=== PATIENT | female | born 1990 | race Caucasian/White ===

== ENCOUNTER 2017-03-22 08:47 | Outpatient (CLI) | payer OTHER | END 2017-03-22 08:48 | disposition home or self-care (01) | LOC: LAB 08:47 | PROVIDERS: ATTEND Obstetrics & Gynecology | DX: Z36 Encounter for antenatal screening of mother (principal) | CPT/HCPCS: 36415; 82950; 85018; 86850 ==

== ENCOUNTER 2017-03-23 13:13 | Outpatient (CLI) | payer OTHER | END 2017-03-23 13:14 | disposition home or self-care (01) | LOC: LAB 13:13 | PROVIDERS: ATTEND Internal Medicine | DX: Z53.9 Procedure and treatment not carried out, unspecified reason (principal) ==

== ENCOUNTER 2017-03-24 07:55 | Outpatient (CLI) | payer OTHER ==
[2017-03-24 08:37] LABS: GTT GLUCOSE,FASTING 81 mg/dL (70-100)
== END 2017-03-24 07:56 | disposition home or self-care (01) ==
LOC: LAB 07:55
PROVIDERS: ATTEND Obstetrics & Gynecology
DX: Z36 Encounter for antenatal screening of mother (principal)
CPT/HCPCS: 36415; 82951

== ENCOUNTER 2017-04-27 09:25 | Outpatient (CLI) | payer OTHER ==
[2017-04-27 10:58] LABS: THYROID STIMULATING HORMONE 1.21 uIU/mL (0.34-5.60)
== END 2017-04-27 09:26 | disposition home or self-care (01) ==
LOC: LAB 09:25
PROVIDERS: ATTEND Obstetrics & Gynecology
DX: D34 Benign neoplasm of thyroid gland (principal)
CPT/HCPCS: 36415; 84439; 84443; 84481

== ENCOUNTER 2017-05-06 10:59 | Outpatient (CLI) | payer OTHER ==
--- NOTE | 2017-05-06 11:47 | Ultrasound Report ---
EXAM: THYROID ULTRASOUND EXAM DATE: 05/06/2017 11:30 AM. CLINICAL HISTORY: BENIGN NEOPLASM OF THYROID GLAND. COMPARISON: None. TECHNIQUE: Real time sonographic imaging of the thyroid was performed by the nurse aide evaluator. Multiple re presentative static images were saved for review. FINDINGS: THYROID GLAND: Right Lobe: 4.2 x 1.7 x 1.4 cm, volume 5.1 cc. Normal background echotexture. Right Lobe Nodules: None. Left Lobe: 4.8 x 1.8 x 2.0 cm, volume 9 cc. Normal background echotexture. Left Lobe Nodules: There is a mixed cystic and solid nodule in the midportion of left lobe measuring 2.3 x 1.5 x 1.5 cm with no internal microcalcifications. Isthmus: 0.4 cm AP. Isthmic Nodules: None. LYMPH NODES: No adenopathy demonstrated in the central or lateral compartment. OTHER: None. IMPRESSION: There is a mixed cystic and solid nodule in the midportion of the left lobe measuring up to 2.3 cm which meets imaging criteria for biopsy recommendation. Management recommendations are based on 2015 [place] [employer] Management Guidelines for A dult Patients with Thyroid Nodules and Differentiated Thyroid Cancer. [facility] Referring Provider Line: [phone] SITE ID: [id number]
== END 2017-05-06 11:00 | disposition home or self-care (01) ==
LOC: DI 10:59
PROVIDERS: ATTEND Obstetrics & Gynecology
DX: D34 Benign neoplasm of thyroid gland (principal)
CPT/HCPCS: 76536

== ENCOUNTER 2017-05-08 22:14 | Outpatient (CLI) | payer OTHER ==
[2017-05-08] MEDS ORDERED: TERBUTALINE 1 MG/ML VIAL SUBQ ONE ×2 (23:02→23:08)
[2017-05-08 23:15] LABS: BILIRUBIN,URINE NEGATIVE (NEGATIVE)
[2017-05-08 23:16] VITALS: BP 130/68
[2017-05-08] MEDS ORDERED: TERBUTALINE 1 MG/ML VIAL SUBQ SCH (23:20)
[2017-05-08 23:37] LABS: UA CHARGE (STRIP ONLY) YES; UR CULTURE IF IND NOT INDICATED
== END 2017-05-08 23:55 | disposition home or self-care (01) ==
LOC: WFO 22:14 → FBP 22:14 → WFO 23:55
PROVIDERS: ATTEND Obstetrics & Gynecology
DX: O47.03 False labor before 37 completed weeks of gestation, third trimester (principal); Z3A.32 32 weeks gestation of pregnancy
CPT/HCPCS: 81001; 81003; 87086; 96372; 99214

== ENCOUNTER 2017-06-02 08:00 | Outpatient (CLI) | payer OTHER | END 2017-06-02 08:01 | disposition home or self-care (01) | LOC: LAB.R 08:00 | PROVIDERS: ATTEND Obstetrics & Gynecology | DX: Z36 Encounter for antenatal screening of mother (principal) | CPT/HCPCS: 87081 ==

== ENCOUNTER 2017-06-20 09:55 | Outpatient (CLI) | payer OTHER ==
[2017-06-20 10:54] VITALS: BP 114/65
[2017-06-20 10:55] LABS: BASOPHILS # (AUTO) 0.1 10^3/uL (0.0-0.1); BASOPHILS % (AUTO) 0.6 %; EOSINOPHILS # (AUTO) 0.1 10^3/uL (0.0-0.7); EOSINOPHILS % (AUTO) 0.9 %; HCT - HEMATOCRIT 38.3 % (37.0-47.0); HGB - HEMOGLOBIN 12.9 g/dL (12.0-16.0); LYMPHOCYTES # (AUTO) 3.3 10^3/uL (1.5-3.5); LYMPHOCYTES % (AUTO) 27.5 %; MEAN CORPUSCULAR HEMOGLOBIN 29.9 pg (27.0-31.0); MEAN CORPUSCULAR HGB CONC 33.7 g/dL (32.0-36.0); MEAN CORPUSCULAR VOLUME 88.8 fL (81.0-99.0); MEAN PLATELET VOLUME 9.9 fL (7.9-10.8); MONOCYTES # (AUTO) 1.1 10^3/uL (0.0-1.0); MONOCYTES % (AUTO) 9.4 %; NEUTROPHILS # (AUTO) 7.4 10^3/uL (1.5-6.6); NEUTROPHILS % (AUTO) 61.6 %; RED BLOOD COUNT 4.31 10^6/uL (4.20-5.40); RED CELL DISTRIBUTION WIDTH 13.8 % (12.0-15.0); UNCORRECTED WHITE BLOOD COUNT 12.1 x10^3/uL; WHITE BLOOD COUNT 12.1 x10^3/uL (4.8-10.8)
== END 2017-06-20 12:00 | disposition home or self-care (01) ==
LOC: WFO 09:55 → FBP 09:58 → WFO 12:00
PROVIDERS: ATTEND Obstetrics & Gynecology
DX: O16.3 Unspecified maternal hypertension, third trimester (principal); Z3A.38 38 weeks gestation of pregnancy
CPT/HCPCS: 59025; 82570; 83615; 84156; 84450; 84550; 85025; 99212

== ENCOUNTER 2017-06-22 05:47 | Outpatient (CLI) | payer OTHER ==
[2017-06-22 08:18] VITALS: BP 139/82
--- NOTE | 2017-06-22 09:02 | PROVIDER PROGRESS NOTE ---
Labor Progress Note - Uterine Monitoring Uterine Monitoring Mode: positive: External toco Contraction Frequency (min/apart): 2-3 Contraction Intensity: positive: Mild Uterine Resting Tone: positive: Soft - Monitoring Monitor Mode: positive: External ultrasound Heart Rate Baseline: 130 Heart Rate Variability: positive: Moderate (6-25 bmp) Accelerations: positive: Present, 15x15 Decelerations: positive: None Strip Review: positive: Category I - Vaginal Exam Dilation (in cm): 2-3 Effacement (%): 75 Station: 0 (per RN, no change management a period of 2.5 hours) Cervical Position: Midposition - Labor Progress Note Labor Progress Note/Additional Text: Linda presented to OB triage w/ a complaint of strong uterine contractions that are disrupting her sleep over a period of >2.5 hours. She reported contractions q3 minutes, progressively intense, w/o VB or LOF. Good FM. She was accompanied by her supportive . NST and physical exam were performed, and both were reassuring. NST was reactive & cat I. Cervical exam was repeated after a period of 2.5 hours & was found to be unchanged. She was counseled regarding prodromal labor at term & management options. She elected po hydroxyzine @ home & would try to rest t/o the day. She had reliable transportation to the hospital & was able to fully articulate warning s/sx, labor s/sx and reasons to call. She was discharged home today in excellent condition & had a f/u appt scheduled for 06/29/2017, if she was undelivered @ that point. O: AAOx3, NAD WA gravid female, affect & mood appropriate HEENT: normocephalic, corrective lenses Lungs: breathing unlabored Abd: gravid, NT, palpable mild uterine contractions, palpable movement FHTs: BL 130bpm, + accels, no decels, mod variability: reactive NST TOCO: UCs q2-3 minutes SVE: 2-3/75/0 w/ IBOW per RN, unchanged over a period of 2.5 hours MS: FROM, no gait abnormality, no edema Skin: clean, dry, intact, no lesions Neuro: no gross deficit A: Prodromal labor @ term P: 1. hydroxyzine 100mg po x1, then 50mg po q 6 hours PRN 2. Reviewed warning s/sx, labor s/sx, reasons to call 3. D/C to home w/ f/u PRN & for routine visit x1 week
[2017-06-23] MEDS ORDERED: OXYTOCIN/SODIUM CHLORIDE 250 ML IV ONE (00:40)
[2017-06-23] MEDS ORDERED: ACETAMINOPHEN 325 MG TABLET PO PRN (00:40)
[2017-06-23] MEDS ORDERED: HYDROCORTISONE/PRAMOXINE 10 GM PR PRN (00:40)
[2017-06-23] MEDS ORDERED: HYDROCORTISONE 1% CREAM 28 GM TUBE PR PRN (00:40)
[2017-06-23] MEDS ORDERED: WITCH HAZEL/GLYCERIN 1 EACH MED..PAD TOP PRN (00:40)
[2017-06-23] MEDS ORDERED: LACTATED RINGERS 1,000 ML IV SCH (01:00)
[2017-06-23] MEDS ORDERED: IBUPROFEN 600 MG TABLET PO SCH (01:00)
[2017-06-23] MEDS ORDERED: PRENATAL VITAMIN TABLET PO SCH (09:00)
[2017-06-23] MEDS ORDERED: DOCUSATE SODIUM 100 MG CAPSULE PO SCH (09:00)
--- NOTE | 2017-06-23 16:31 | PROVIDER PROGRESS NOTE ---
Subjective - Prog Note Date Prog Note Date: 06/23/17 Prog Note Time: 16:29 - Subjective Pt reports feeling: Improved (Pt reports that she has some discomfort in her lumbar spine. Some perineal tenderness & occasional uterine cramping, k-pad & ibuprofen sufficient to manage pain. well w/o discomfort. Was able to sleep some & was able to take a shower. Plans 3 months of pp leave & partner will have 2 weeks off to assist her. Has breast pump Rx, but no pump yet. Feels good about her delivery experience. Plans condom use for pp contraception. Minimal lochia rubra. Ambulating & voiding w/o difficulty. Tolerating po intake w/o difficulty. Partner very supportive.) Objective - Vital Signs/Intake & Output Reviewed Vital Signs: Yes Vital Signs: T: 96.9 HR 89, RR 22 BP 135/76 - Objective General Appearance: positive: No acute distress, Alert Eyes Bilateral: positive: Normal inspection, EOMI, No scleral icterus Respiratory: positive: Chest non-tender, No respiratory distress, Breath sounds nml Cardiovascular: positive: Regular rate & rhythm, No murmur Abdomen: positive: Non-tender, No distention, Other (FF U-1) Back: positive: Other (epidural puncture site x2, more lateral site w/ 1cm area of ecchymotic induration, tender to palpation) Skin: positive: Skin rash (posterior trunk maculopapular rash clearly demarcated in shape of epidural site tape, pruritic), Puncture wound Extremities: positive: Non-tender, Full ROM, Nml appearance, No pedal edema. negative: Calf tenderness, Bear's sign/cords Neurologic/Psychiatric: positive: Oriented x3, CN's nml (2-12), Motor nml, Sensation nml, Mood/affect nml Comments/Other: Breasts b/l soft, NT; nipples intact & everted; observed latch 10, some inferior lip tucking during suckling, corrected easily Assessment/Plan - Problem List (1) (normal spontaneous vaginal delivery) Impression: 26 yo s/p w/ 1st degree perineal laceration w/ repair, PPD#0 Normal uterine involution well, 910 latch Posterior trunk atopy Adequate pain control w/o opioid analgesia P: 1. topical hydrocortisone for dermatitis 2. support provided & to continue in ongoing fashion 3. Cont kpad & ibuprofen 4. Routine care 5. Anticipate d/c PPD#2
[2017-06-23] MEDS ORDERED: HYDROCORTISONE 1% CREAM 28 GM TUBE TOP SCH (21:00)
[2017-06-24] MEDS ORDERED: IBUPROFEN 600 MG TABLET PO PRN (09:38)
== END 2017-06-22 08:59 | disposition home or self-care (01) ==
LOC: WFO 05:47 → FBP 05:48 → WFO 08:59
PROVIDERS: ATTEND Registered Nurse
DX: O47.1 False labor at or after 37 completed weeks of gestation (principal); Z3A.38 38 weeks gestation of pregnancy
CPT/HCPCS: 99213

== ENCOUNTER 2017-06-22 17:01 | Inpatient (IN) | payer OTHER ==
[2017-06-22] MEDS ORDERED: SODIUM CHLORIDE FLUSH 0.9% 10 ML SYRINGE IVP ONE (17:47)
[2017-06-22] MEDS ORDERED: SODIUM CHLORIDE FLUSH 0.9% 10 ML SYRINGE IVP PRN (18:24)
[2017-06-22] MEDS ORDERED: ONDANSETRON 4 MG/2 ML VIAL IVP PRN ×2 (18:24→20:35)
[2017-06-22] MEDS ORDERED: fentaNYL 100 MCG/2 ML VIAL IVP PRN (18:24)
--- NOTE | 2017-06-22 18:31 | HISTORY & PHYSICAL EXAMINATION ---
Admit History - Instructions [place]/Slash: -Left hand click circles element as positive or present. -Right hand click slashes element as negative or not present. - Visit Reason Visit Reason: Contractions, Membranes rupture - : 1 Parity: 0 Premature: 0 Ectopic: 0 : 0 Care: positive: [facility] Risk/History: positive: None Complications This : positive: None Smoking Status: Never smoker - Mother's Labs Mother's Blood Type: positive: O Mother's RH: positive: Positive GBS: positive: Group B Step Negative Rubella Status: positive: Immune Meds/Allgy - Home Medications Home Medications: Ambulatory Orders Medication Instructions Recorded Confirmed Pnv No.122/Iron/Folic Acid 1 each PO DAILY 06/22/17 06/22/17 [ Multi Tablet] - Allergies Allergies/Adverse Reactions: Allergies Allergy/AdvReac Type Severity Reaction Status Date / Time No Known Drug Allergies Allergy Verified 01/31/15 14:59 Physical - Abdominal Exam Vital Signs: Temp Pulse Resp BP Pulse Ox 36.9 C 97 17 130/82 H 98 06/22/17 17:29 06/22/17 17:29 06/22/17 17:29 06/22/17 17:50 06/22/17 17:29 Contraction Frequency (min/apart): 4-5 Contraction Intensity: positive: Moderate to strong Uterine Resting Tone: positive: Soft - Monitoring Heart Rate Baseline: 140 Strip Review: positive: Category I - Presentation Presentation: positive: Vertex - Vaginal Exam Membranes: positive: Membranes ruptured Dilation (in cm): 6 Effacement (%): 80 Station: positive: -1 Cervical Position: positive: Anterior - Speculum Exam Speculum Exam Performed: positive: No Findings: positive: Gross leak - Other Notes Labor Progress Note/Additional Text: Linda Clifton is a 26 y/o @ 39 weeks' EGA who presents w/ gross rupture of membranes for CAF @ 1620. She has had some slight bloody show. No juliann bleeding. +FM. Feels her contractions have intensified significantly from what she was experiencing this morning. She ultimately desires an epidural for discomfort. Her partner, Ortiz, is present @ the bedside & is supportive. She has had an uncomplicated course & screened negative for GBS @ 36 weeks ' gestation. Her medical hx is unremarkable & she has never had surgery. She denies drugs/ETOH/smoking. O: AAOx3, VSS T: 98.2, HR 103, RR 18, BP 130/82 HEENT: normocephalic, corrective lenses Lungs: breathing unlabored, CTA t/o Heart: RRR nl s1s2 Abd: gravid, NT, palpable moderate contractions, lie longitudinal, presentation cephalic EFM: BL 140bpm, +accels, no decels, mod nikita TOCO: UCs q4-5 minutes x80 seconds SVE: 6/80/-1, gross leakage of CAF Extremities: FROM t/o, NT, no erythema, neg Bear's, minimal edema Skin: clean, dry,intact w/o lesion; abdominal striae noted Neuro: no gross deficit Psych: normal mood & affect A: 26 y/o @ 39 weeks' gestation in spontaneous active labor SROM for CAF x2 hours, afebrile GBS negative FHTs cat I Adequate pain control w/o analgesia/anesthesia P: 1. admit to FBP, CBC, BB hold 2. General diet, reviewed dietary recommendations 3. Reviewed physiology of labor, anticipatory guidance 4. Reviewed all pain management options, pt desires hydrotherapy @ this time 5. Reviewed optimal maternal positioning to encourage descent 6. Reassess cervical status w/ clinical indication 7. Analgesia/anesthesia PRN per pt request 8. Reviewed plan of care w/ pt, partner & RN @ bedside; Dr. Leo, back up MD, aware of clinical scenario; all in agreement, without concerns 9. Anticipate Plan for Labor - Plan For Labor : Expectant
[2017-06-22 18:48] LABS: BASOPHILS # (AUTO) 0.1 10^3/uL (0.0-0.1); BASOPHILS % (AUTO) 0.9 %; EOSINOPHILS # (AUTO) 0.1 10^3/uL (0.0-0.7); HCT - HEMATOCRIT 37.9 % (37.0-47.0); LYMPHOCYTES % (AUTO) 23.5 %; MEAN CORPUSCULAR HEMOGLOBIN 30.2 pg (27.0-31.0); MEAN CORPUSCULAR HGB CONC 34.3 g/dL (32.0-36.0); MEAN CORPUSCULAR VOLUME 88.1 fL (81.0-99.0); MEAN PLATELET VOLUME 10.3 fL (7.9-10.8); MONOCYTES # (AUTO) 1.1 10^3/uL (0.0-1.0); MONOCYTES % (AUTO) 8.9 %; NEUTROPHILS # (AUTO) 8.5 10^3/uL (1.5-6.6); NEUTROPHILS % (AUTO) 65.7 %; RED CELL DISTRIBUTION WIDTH 14.2 % (12.0-15.0); UNCORRECTED WHITE BLOOD COUNT 12.9 x10^3/uL; WHITE BLOOD COUNT 12.9 x10^3/uL (4.8-10.8)
[2017-06-22] MEDS ORDERED: LACTATED RINGERS 1,000 ML IV ONE (18:50)
[2017-06-22] MEDS ORDERED: ACETAMINOPHEN 325 MG TABLET PO SCH (19:00)
[2017-06-22] MEDS ORDERED: TERBUTALINE 1 MG/ML VIAL SUBQ SCH (19:00)
[2017-06-22] MEDS ORDERED: LIDOCAINE 1% 50 ML MDV ONE (19:09)
[2017-06-22] MEDS ORDERED: fent/BUPIV 2 MCG/0.125% 0 ML EP ONE (19:20)
[2017-06-22] MEDS ORDERED: fentaNYL 100 MCG/2 ML VIAL ONE (19:36)
[2017-06-22] MEDS ORDERED: fent/BUPIV 2 MCG/0.125% 250 ML EP ONE (19:36)
[2017-06-22] MEDS ORDERED: ROPIVACAINE 0.2% PF 10 ML VIAL EPI ONE (20:15)
[2017-06-22] MEDS ORDERED: diphenhydrAMINE INJ 50 MG/ML VIAL IVP PRN (20:35)
[2017-06-22] MEDS ORDERED: NALBUPHINE 20 MG/ML AMP IVP PRN (20:35)
[2017-06-22] MEDS ORDERED: fent/BUPIV 2 MCG/0.125% 250 ML EP PRN (20:35)
[2017-06-22] MEDS ORDERED: METOCLOPRAMIDE 10 MG/2 ML VIAL IVP PRN (20:35)
[2017-06-22] MEDS ORDERED: NALOXONE 0.4 MG/ML VIAL IVP PRN (20:35)
[2017-06-22] MEDS ORDERED: ePHEDrine 50 MG/ML VIAL IVP PRN (20:35)
[2017-06-22] MEDS ORDERED: LACTATED RINGERS 500 ML IV ONE (20:35)
[2017-06-22] MEDS: LACTATED RINGERS 1,000 ML IV ONE ×2 (20:43→23:26)
--- NOTE | 2017-06-22 21:17 | PROVIDER PROGRESS NOTE ---
Labor Progress Note - Uterine Monitoring Contraction Frequency (min/apart): 6 Contraction Intensity: positive: Mild to moderate Uterine Resting Tone: positive: Soft - Monitoring Monitor Mode: positive: External ultrasound Heart Rate Baseline: 145 Heart Rate Variability: positive: Moderate (6-25 bmp) Accelerations: positive: Present, 15x15 Decelerations: positive: Early, Variable (estefani in 90s w/ spontaneous return to baseline <30 seconds) Strip Review: positive: Category II (reassuring) - Vaginal Exam Dilation (in cm): 8 Effacement (%): 90 Station: -1 Cervical Position: Anterior - Labor Progress Note Labor Progress Note/Additional Text: S: Linda is comfortable w/ her epidural. She feels some mild pressure but no pain w/ her uterine contractions. Her partner, Ortiz, is present at the bedside, supportive. She is hoping to get some rest O: AAOx3, NAD WA gravid female. VS: BP 106/67, HR 80, T 97.6, RR 16 EFM: BL 145bpm, + accels, +early decels, +variable decels, non-repetitive, to estefani in 90s w/ spontaneous return to baseline <30 seconds, mod variability TOCO: UCs q6 minutes x90 seconds, palpably moderate SVE: 8/90/-1, continuing leakage of CAF, +bloody show, position DOA A: 26 y/o @ 39 weeks' EGA in spontaneous, active labor SROM for CAF @ 1630, for a total ruptured duration of 4.75 hours, afebrile GBS negative FHTs cat II for non-repetitive variable decelerations, overall reassuring Adequate pain control w/ epidural anesthesia Progressive spontaneous cervical change P: 1. Reviewed physiology of labor & optimal maternal positioning to facilitate descent 2. Encouraged maternal rest 3. Reassess cervical status x4 hours, earlier PRN 4. As contractions have become increasingly infrequent, Pitocin augmentation to enhance contraction frequency if no cervical change @ next evaluation 5. Reviewed plan of care w/ pt, partner & RN @ bedside; all in agreement, without concerns
[2017-06-22] MEDS ORDERED: OXYTOCIN/SODIUM CHLORIDE 250 ML IV ONE (23:26)
--- NOTE | 2017-06-23 00:48 | DELIVERY NOTE ---
Delivery Note - Labor Labor: positive: Spontaneous - Delivery Method Delivery Method: positive: Spontaneous vaginal delivery - Presentation Presentation: positive: Vertex, Compound (R hand), SHIVAM - right occiput anterior - Nuchal Cord Nuchal Cord: positive: Present (x2), Reduced - Anesthetic Anesthetic Type: - Amniotic Fluid Description Amniotic Fluid Description: positive: Clear - Episiotomy Type Episiotomy Type: positive: None - Laceration Laceration: positive: 1st degree (repaired under epidural anesthesia) - Suture Suture Type: positive: Vicryl Suture Size: positive: 2-0 - Delivery Outcome Delivery Outcome: positive: Livebirth - : positive: Placed in direct skin contact with mother, Stimulated, Warmed , Ruth used Daniels sex: positive: Male - Cord Cord: positive: 3 vessels - Placenta Placenta: positive: Intact, Spontaneous - Estimated Blood Loss Estimated Blood Loss (in cc): 150 - Post Delivery Events Post Delivery Events: positive: No post delivery events - Delivery Comments (Free Text/Narrative) Delivery Comments (Free Text/Narrative): Linda Clifton is a 26 y/o [id number] who was admitted for SROM for CAF 06/22/2017 @ 1630 & spontaneous active labor @ 39 weeks' gestation. She progressed steadily & received epidural anesthesia for her discomfort. She reported an urge to push & was found to be completely dilated @ 2330, for a total first stage duration of 7 hours. She pushed w/ spontaneous urge & direction in High- Fowlers & L lateral positions to of viable male over a 1st degree perineal laceration in SHIVAM position w/ compound R hand @ 0006, for a total second stage duration of 36 minutes. Loose nuchal x2 reduced easily prior to delivery of shoulders & body. Infant initially stunned, placed to maternal abdomen for drying/stim & subsequently quite vigorous w/ spontaneous, lusty cry. Apgars 7 at one min and 9 at five min. Delayed cord clamping until cessation of pulsation, then cord clamped x2 by CNM, cut by FOB. 3VC noted, cord segment obtained for gases, cord blood obtained. Active management of the 3rd stage w/ Pitocin in IV fluids. Placenta del spontaneously, intact, Petros, @ 0017 for a total 3rd stage duration of 11min. Fundus firm @ U. Vagina & perineum inspected & 1st degree perineal laceration noted. Repaired under epidural anesthesia w/ 2 stitches of 2-0 vicryl. Hemostatic & well-approximated. EBL 150mL. Mother & stable. initiated but not yet with sustained latch. support provided. FOB present @ the bedside, involved & very supportive.
[2017-06-23] MEDS ORDERED: OXYTOCIN/SODIUM CHLORIDE 250 ML IV ONE (01:43)
[2017-06-23] MEDS ORDERED: WITCH HAZEL/GLYCERIN 1 EACH MED..PAD TOP PRN (01:43)
[2017-06-23] MEDS ORDERED: HYDROCORTISONE/PRAMOXINE 10 GM PR PRN (01:43)
[2017-06-23] MEDS: IBUPROFEN 600 MG TABLET PO SCH ×4 (02:41→20:56)
[2017-06-23] MEDS: LACTATED RINGERS 1,000 ML IV SCH ×2 (07:47→14:02)
[2017-06-23] MEDS: DOCUSATE SODIUM 100 MG CAPSULE PO SCH ×2 (08:48→20:56)
--- NOTE | 2017-06-23 16:31 | PROVIDER PROGRESS NOTE ---
Subjective - Prog Note Date Prog Note Date: 06/23/17 Prog Note Time: 16:29 - Subjective Pt reports feeling: Improved (Pt reports that she has some discomfort in her lumbar spine. Some perineal tenderness & occasional uterine cramping, k-pad & ibuprofen sufficient to manage pain. well w/o discomfort. Was able to sleep some & was able to take a shower. Plans 3 months of pp leave & partner will have 2 weeks off to assist her. Has breast pump Rx, but no pump yet. Feels good about her delivery experience. Plans condom use for pp contraception. Minimal lochia rubra. Ambulating & voiding w/o difficulty. Tolerating po intake w/o difficulty. Partner very supportive.) Objective - Vital Signs/Intake & Output Reviewed Vital Signs: Yes Vital Signs: T: 96.9 HR 89, RR 22 BP 135/76 - Objective General Appearance: positive: No acute distress, Alert Eyes Bilateral: positive: Normal inspection, EOMI, No scleral icterus Respiratory: positive: Chest non-tender, No respiratory distress, Breath sounds nml Cardiovascular: positive: Regular rate & rhythm, No murmur Abdomen: positive: Non-tender, No distention, Other (FF U-1) Back: positive: Other (epidural puncture site x2, more lateral site w/ 1cm area of ecchymotic induration, tender to palpation) Skin: positive: Skin rash (posterior trunk maculopapular rash clearly demarcated in shape of epidural site tape, pruritic), Puncture wound Extremities: positive: Non-tender, Full ROM, Nml appearance, No pedal edema. negative: Calf tenderness, Bear's sign/cords Neurologic/Psychiatric: positive: Oriented x3, CN's nml (2-12), Motor nml, Sensation nml, Mood/affect nml Comments/Other: Breasts b/l soft, NT; nipples intact & everted; observed latch 06/11, some inferior lip tucking during suckling, corrected easily - Lab Results Fish Bones: 06/22/17 18:10 Assessment/Plan - Problem List (1) (normal spontaneous vaginal delivery) Impression: 26 yo s/p w/ 1st degree perineal laceration w/ repair, PPD#0 Normal uterine involution well, 10 latch Posterior trunk atopy Adequate pain control w/o opioid analgesia P: 1. topical hydrocortisone for dermatitis 2. support provided & to continue in ongoing fashion 3. Cont kpad & ibuprofen 4. Routine care 5. Anticipate d/c PPD#2
[2017-06-23] MEDS ORDERED: HYDROCORTISONE 1% CREAM 28 GM TUBE TOP SCH (17:00)
[2017-06-23] MEDS ORDERED: HYDROCORTISONE 1% CREAM 28 GM TUBE TOP PRN (17:00)
[2017-06-24] MEDS: IBUPROFEN 600 MG TABLET PO SCH ×2 (02:39→08:56)
[2017-06-24 08:15] VITALS: BP 130/87
[2017-06-24] MEDS: LACTATED RINGERS 1,000 ML IV SCH (08:56)
[2017-06-24] MEDS: DOCUSATE SODIUM 100 MG CAPSULE PO SCH (08:56)
--- NOTE | 2017-06-24 09:02 | Discharge Plan ---
Discharge Plan Disposition: 01 Home, Self Care Condition: Good Prescriptions: Ibuprofen [Motrin] 600 mg PO Q6H PRN #30 tablet PRN Reason: Pain Diet: Regular Activity Restrictions: pelvic rest Shower Restrictions: No Driving Restrictions: No Instruction Topics: Vaginal After No Smoking: If you smoke, Please STOP! Call for help.
--- NOTE | 2017-06-24 09:06 | DISCHARGE SUMMARY ---
"Discharge Summary Admit Date: 06/22/17 Discharge Date: 06/24/17 Discharging Provider: RAMY Code Status: Attempt Resuscitation Condition at Discharge: Good Discharge Disposition: 01 Home, Self Care Discharge Facility Name: [facility] - DIAGNOSES Admission Diagnoses: LEAKAGE OF AMNIOTIC FLUID ACTIVE LABOR @ TERM Discharge Diagnoses with Status of Each Condition: - HPI History of Present Illness: Linda is a 26 y/o who was admitted w/ SROM for CAF. She was in spontaneous, active labor & 6cm on admission. She progressed spontaneously w/o additional intervention & received an epidural for her discomfort. She progressed readily to complete dilatation & delivered vaginally in SHIVAM position w/R compound hand a viable male over a 1st degree perineal laceration, which was repaired. She had minimal EBL w/ delivery & was well w/in 30 minutes of delivery. - CONSULTS | PROCEDURES Procedures: VAGINAL DELIVERY EPIDURAL PLACEMENT 1ST DEGREE PERINEAL LACERATION W/ REPAIR - HOSPITAL COURSE Hospital Course: , her pain has been well-controlled w/ non-opioid analgesia. She has had some discomfort @ her epidural insertion site, which remains intermittent. She is ambulating and voiding without difficulty. She is passing flatus & tolerating PO intake. Her is planning 2-3 weeks of pp leave to assist her & she reports additional social support. She is not planning another @ this time & intends condom use for pp contraception. She is having minimal lochia rubra & is well w/ 07/11 observed latch. She is able to fully articulate pp warning s/sx, including pp depression s/sx, and pp aftercare instructions. O: AAOx3, NAD, [place] female; affect appropriate, mood normal, VSS HEENT: normocephalic, atraumatic, corrective lenses Lungs: b/l CTA t/o, unlabored breathing Heart: RRR nls1s2, no murmur Breasts: b/l s, nt; nipples intact & everted, colostrum easily expressed Abd: S, NT, ND FFU-2 Perineum: well-approximated w/o erythema/ecchymosis, minimal lochia rubra Extremities: FROM, warm, well-perfused, no erythema, no edema, negative Bear's Skin: clean, dry, intact, no lesion A: 26 y/o s/p 06/23 w/ 1st degree perineal laceration w/ repair; recovering well Normal uterine involution well Pain well-controlled w/ non-opioid analgesia P: 1. reviewed warning s/s, pp depression s/sx, aftercare 2. Reviewed reasons to call, emergency contact information 3. Extensive support provided & to continue as an outpt PRN 4. D/c to home 5. f/u for pp care & support x2 weeks, earlier PRN - ALLERGIES Allergies/Adverse Reactions: Allergies Allergy/AdvReac Type Severity Reaction Status Date / Time No Known Drug Allergies Allergy Verified 01/31/15 14:59 - MEDICATIONS Home Medications: Ambulatory Orders Medication Instructions Recorded Confirmed Pnv No.122/Iron/Folic Acid 1 each PO DAILY 06/22/17 06/22/17 [ Multi Tablet] Ibuprofen [Motrin] 600 mg PO Q6H PRN #30 tablet 06/24/17 - PHYSICAL EXAM AT DISCHARGE General Appearance: positive: No acute distress, Alert Eyes Bilateral: positive: Normal inspection, EOMI, No scleral icterus Respiratory: positive: Chest non-tender, No respiratory distress, Breath sounds nml Cardiovascular: positive: Regular rate & rhythm, No murmur Abdomen: positive: Non-tender, No distention, Other (FF U-2). negative: Tenderness Skin: positive: Color nml, No rash, Warm, Dry Extremities: positive: Non-tender, Full ROM, No pedal edema. negative: Calf tenderness, Bear's sign/cords Neurologic/Psychiatric: positive: Oriented x3, CN's nml (2-12), Motor nml, Sensation nml, Mood/affect nml - LABS Result Diagrams: 06/22/17 18:10 - FOLLOW UP Follow Up[facility] - TIME SPENT Time Spent in Discharge (Minutes): 30"
--- NOTE | 2017-06-24 13:44 | Labor Flowsheet ---
Labor Flowsheet Datetime Report Generated by CPN: 06/24/2017 13:44 Datetime: 06/24/2017 08:10 VITAL SIGNS NBP Sys/Promise/Mean (mmHg): 130 : 63 : 81 Pulse: 84 Datetime: 06/24/2017 07:58 Temperature (F): 96.3 Temperature (C): 35.7 Temperature (C): 35.7 Datetime: 06/23/2017 03:05 SpO2 (%): 98 Datetime: 06/23/2017 00:06 Stage of : Datetime: 06/23/2017 00:01 Vital Sign Comments: Pushing with UCs; arm bent with BP cuff LaborFlag: Labor Datetime: 06/23/2017 00:00 FHR Baseline Rate : 150 FHR Baseline Changes: No Baseline Change Variability: Moderate 6-25 bpm Accelerations: None Decelerations: Variable Actions for Decelerations: Side to Side; Oxygen Applied Category: Category II Comments: pushing with good descent Oxygen Amount (LPM): 10 Oxygen Method: Non-Rebreather Pushing Progress: with Pushing; Pushing Effectively with Contractions Datetime: 06/22/2017 23:55 STAGE 2 Pushing Position: Pushing with Contractions; Pushing Left Side Datetime: 06/22/2017 23:53 UTERINE ACTIVITY Monitor Mode: External Frequency (min): 1.5-2 Quality: Strong Duration (sec): 50-70 Resting Tone (Palpate): Relaxed Patient Position/Activity: Left Extreme Datetime: 06/22/2017 23:47 Provider Reviewed Strip: Yes COMMUNICATION Communication: Provider at Bedside Provider Notified (Name): CNM Milagrosa Notification Reason: Status Update; Status; Labor Status; Uterine Activity Communication Comments: pushing started; will call Dr Leo Datetime: 06/22/2017 23:45 VAGINAL EXAM Dilatation (cm): 10.0 Effacement (%): 100 Station: 1 Exam by: CNM Milagrosa Vaginal Bleeding: Normal Show TEACHING Instructional Method: Demo; Verbal; Patient Instructed; Family/Support Person Instructed; Verbalize d Understanding Plan of Care: Vaginal Delivery Labor/Induction: Pushing Methods Datetime: 06/22/2017 23:44 Pattern: Normal: <= 5 Contractions in 10 Minutes ASSESSMENT A Monitor Mode: External US Pain Presence: Intermittent Pain Type: Pressure Pain Location: Back; Perineum Pain Relief Measures: Epidural Given Pain Coping: Breathing Through Contractions Procedures: Sterile Vag Exam Comfort Measures: Coaching; Family Support Datetime: 06/22/2017 23:37 I/O Interventions: Straight Cath (ml) @ 400 Patient Care Comments: concentrated urine Datetime: 06/22/2017 23:36 Cervix, Consistency: Soft Cervix, Position: Anterior Datetime: 06/22/2017 23:30 PAIN Pain Scale: 2 Pain Goal: 3 Datetime: 06/22/2017 23:15 ANESTHESIA Anesthesia Plans: Epidural Anesthesia Level Check: T5 Datetime: 06/22/2017 23:00 Respirations: 22 Datetime: 06/22/2017 22:30 Pain Management: Pain Scale/Goals; Comfort Measures Datetime: 06/22/2017 22:01 Temperature Route: Oral Datetime: 06/22/2017 21:18 Strip Reviewed by: CNM Milagrosa Datetime: 06/22/2017 21:15 Breath Sounds, Left: Clear and Equal Breath Sounds, Right: Clear and Equal Datetime: 06/22/2017 21:00 Monitor Interventions for UA: [place] Adjusted Datetime: 06/22/2017 20:18 Monitor Interventions for FHR: Ultrasound Adjusted PATIENT CARE IV/Blood Work: IV Bolus Started Datetime: 06/22/2017 20:05 Epidural Procedure: Loading Dose Datetime: 06/22/2017 20:00 MEDICATIONS Medication Comments: Epidural placed; bolus given Datetime: 06/22/2017 19:43 PROCEDURE TIME OUT Procedure Type: Epidural anesthesia admn Procedure Verify: Correct Patient Identity; Correct Side and Site are Marked; Accurate Procedure Co nsent Form; Agreement on Procedure to be Done; Correct Patient Position; Addressed Need to Administer Antibiotics or Fluids for Irrigation; Safety Precautions Based on Patient History or Medication Use Epidural Positioning: Sitting Anesthesia Comments: ASSISTANT PROFESSOR Whitmarsh at bedside Datetime: 06/22/2017 19:30 Amniotic Fluid Color: Clear MATERNAL ASSESSMENT Level of Consciousness: Fully Conscious DTR's/Clonus: DTRs 2+; No Clonus Headache: Denies Nausea/Vomiting: Denies RUQ Epigastric Pain: Denies
== END 2017-06-24 13:40 | disposition home or self-care (01) | DRG 775 ==
LOC: WFO 17:01 → FBP 17:07 → WFO 18:23 → FBP 18:24
PROVIDERS: ADMIT Registered Nurse; ATTEND Registered Nurse
PROC: 10E0XZZ Delivery of Products of Conception, External Approach (ICD-10-PCS; principal; 2017-06-23)
PROC: 0HQ9XZZ Repair Perineum Skin, External Approach (ICD-10-PCS; 2017-06-23)
DX: O32.6XX0 Maternal care for compound presentation, not applicable or unspecified (principal); O47.1 False labor at or after 37 completed weeks of gestation; O69.81X0 Labor and delivery complicated by cord around neck, without compression, not applicable or unspecified; O70.0 First degree perineal laceration during delivery; O76 Abnormality in fetal heart rate and rhythm complicating labor and delivery; O99.73 Diseases of the skin and subcutaneous tissue complicating the puerperium; L23.1 Allergic contact dermatitis due to adhesives; Z37.0 Single live birth; Z3A.39 39 weeks gestation of pregnancy; Z3A.38 38 weeks gestation of pregnancy
CPT/HCPCS: 85025; 99213

== ENCOUNTER 2017-06-27 08:44 | Outpatient (CLI) | payer OTHER ==
--- NOTE | 2017-06-27 10:17 | Labor Flowsheet ---
Labor Flowsheet Datetime Report Generated by CPN: 06/27/2017 10:17 Datetime: 06/24/2017 08:10 VITAL SIGNS NBP Sys/Promise/Mean (mmHg): 130 : 63 : 81 Pulse: 84 Datetime: 06/24/2017 07:58 Temperature (F): 96.3 Temperature (C): 35.7 Temperature (C): 35.7 Datetime: 06/23/2017 03:05 SpO2 (%): 98 Datetime: 06/23/2017 00:06 Stage of : Datetime: 06/23/2017 00:01 Vital Sign Comments: Pushing with UCs; arm bent with BP cuff LaborFlag: Labor Datetime: 06/23/2017 00:00 FHR Baseline Rate : 150 FHR Baseline Changes: No Baseline Change Variability: Moderate 6-25 bpm Accelerations: None Decelerations: Variable Actions for Decelerations: Side to Side; Oxygen Applied Category: Category II Comments: pushing with good descent Oxygen Amount (LPM): 10 Oxygen Method: Non-Rebreather Pushing Progress: with Pushing; Pushing Effectively with Contractions Datetime: 06/22/2017 23:55 STAGE 2 Pushing Position: Pushing with Contractions; Pushing Left Side Datetime: 06/22/2017 23:53 UTERINE ACTIVITY Monitor Mode: External Frequency (min): 1.5-2 Quality: Strong Duration (sec): 50-70 Resting Tone (Palpate): Relaxed Patient Position/Activity: Left Extreme Datetime: 06/22/2017 23:47 Provider Reviewed Strip: Yes COMMUNICATION Communication: Provider at Bedside Provider Notified (Name): CNM Milagrosa Notification Reason: Status Update; Status; Labor Status; Uterine Activity Communication Comments: pushing started; will call Dr Leo Datetime: 06/22/2017 23:45 VAGINAL EXAM Dilatation (cm): 10.0 Effacement (%): 100 Station: 1 Exam by: CNM Milagrosa Vaginal Bleeding: Normal Show TEACHING Instructional Method: Demo; Verbal; Patient Instructed; Family/Support Person Instructed; Verbalize d Understanding Plan of Care: Vaginal Delivery Labor/Induction: Pushing Methods Datetime: 06/22/2017 23:44 Pattern: Normal: <= 5 Contractions in 10 Minutes ASSESSMENT A Monitor Mode: External US Pain Presence: Intermittent Pain Type: Pressure Pain Location: Back; Perineum Pain Relief Measures: Epidural Given Pain Coping: Breathing Through Contractions Procedures: Sterile Vag Exam Comfort Measures: Coaching; Family Support Datetime: 06/22/2017 23:37 I/O Interventions: Straight Cath (ml) @ 400 Patient Care Comments: concentrated urine Datetime: 06/22/2017 23:36 Cervix, Consistency: Soft Cervix, Position: Anterior Datetime: 06/22/2017 23:30 PAIN Pain Scale: 2 Pain Goal: 3 Datetime: 06/22/2017 23:15 ANESTHESIA Anesthesia Plans: Epidural Anesthesia Level Check: T5 Datetime: 06/22/2017 23:00 Respirations: 22 Datetime: 06/22/2017 22:30 Pain Management: Pain Scale/Goals; Comfort Measures Datetime: 06/22/2017 22:01 Temperature Route: Oral Datetime: 06/22/2017 21:18 Strip Reviewed by: CNM Milagrosa Datetime: 06/22/2017 21:15 Breath Sounds, Left: Clear and Equal Breath Sounds, Right: Clear and Equal Datetime: 06/22/2017 21:00 Monitor Interventions for UA: [place] Adjusted Datetime: 06/22/2017 20:18 Monitor Interventions for FHR: Ultrasound Adjusted PATIENT CARE IV/Blood Work: IV Bolus Started Datetime: 06/22/2017 20:05 Epidural Procedure: Loading Dose Datetime: 06/22/2017 20:00 MEDICATIONS Medication Comments: Epidural placed; bolus given Datetime: 06/22/2017 19:43 PROCEDURE TIME OUT Procedure Type: Epidural anesthesia admn Procedure Verify: Correct Patient Identity; Correct Side and Site are Marked; Accurate Procedure Co nsent Form; Agreement on Procedure to be Done; Correct Patient Position; Addressed Need to Administer Antibiotics or Fluids for Irrigation; Safety Precautions Based on Patient History or Medication Use Epidural Positioning: Sitting Anesthesia Comments: STAFFING RECRUITER [place] at bedside Datetime: 06/22/2017 19:30 Amniotic Fluid Color: Clear MATERNAL ASSESSMENT Level of Consciousness: Fully Conscious DTR's/Clonus: DTRs 2+; No Clonus Headache: Denies Nausea/Vomiting: Denies RUQ Epigastric Pain: Denies
== END 2017-06-27 09:30 | disposition home or self-care (01) ==
LOC: WFO 08:44 → FBP 08:45 → WFO 09:30
PROVIDERS: ATTEND Registered Nurse
DX: Z71.89 Other specified counseling (principal)

== ENCOUNTER 2017-10-09 09:23 | Outpatient (CLI) | payer OTHER ==
--- NOTE | 2017-10-09 12:50 | Ultrasound Report ---
DATE OF SERVICE: 10/09/2017 ULTRASOUND-GUIDED FINE NEEDLE ASPIRATION OF LEFT THYROID NODULE: 10/09/2017 CLINICAL INDICATION: Left thyroid nodule. Previous [place] I FNA FINDINGS: Following obtaining informed consent, a suitable site on the patient' s left neck was selected with ultrasound. The skin was prepped and draped in the usual sterile fashion. The skin and soft tissues were anesthetized with Lidocaine. Under ultrasound guidance, four 22-gauge fine needle aspirations were performed of the left thyroid nodule. The first and fourth passes were placed in CytoLyt for cytologic evaluation. The second and third passes were placed in the Afirma testing fluid for Afirma testing. The patient tolerated the procedure well. No immediate complications. IMPRESSION: Successful fine needle aspiration left thyroid nodule for Afirma testing. Await pathology report. TD: 10/09/2017 13:50 EVAN
[2017-10-09] MEDS ORDERED: BUFFERED LIDOCAINE 10 ML SYRINGE IU ONE ×2 (13:39→14:00)
[2017-10-11 15:40] VITALS: BP 104/47
== END 2017-10-09 09:24 | disposition home or self-care (01) ==
LOC: DI 09:23
PROVIDERS: ATTEND Surgery
DX: E04.1 Nontoxic single thyroid nodule (principal)
CPT/HCPCS: 10022; 76942; 88173; 88305

== ENCOUNTER 2017-11-03 08:13 | Emergency (ER) | payer OTHER ==
[2017-11-03 09:05] LABS: BILIRUBIN,URINE NEGATIVE (NEGATIVE); GLUCOSE, URINE (UA) NEGATIVE (NEGATIVE); KETONES,URINE (UA) NEGATIVE (NEGATIVE); LEUKOCYTE ESTERASE, URINE NEGATIVE (NEGATIVE); NITRITE,URINE NEGATIVE (NEGATIVE); OCCULT BLOOD,URINE NEGATIVE (NEGATIVE); PROTEIN,URINE NEGATIVE (NEGATIVE); UROBILINOGEN,URINE 0.2 (NORMAL) E.U./dL (NORMAL)
[2017-11-03 09:07] LABS: CLARITY,URINE CLEAR (CLEAR); HCG UR QUAL NEGATIVE
[2017-11-03] MEDS ORDERED: SODIUM CHLORIDE 0.9% 1,000 ML IV ONE (09:41)
[2017-11-03] MEDS ORDERED: ONDANSETRON 4 MG/2 ML VIAL IVP STA (09:41)
--- NOTE | 2017-11-03 09:44 | ED Physician Documentation ---
PD HPI ABD PAIN - Stated complaint Stated Complaint: DIARRHEA,VOMITING - Chief complaint Chief Complaint: Abd Pain - History obtained from History obtained from: Patient - History of Present Illness Timing - onset: Today Timing - duration: Hours (4) Timing - details: Still present Quality: Cramping Location: All over / everywhere Associated symptoms: Nausea, Vomiting, Diarrhea. No: Fever, Vaginal bleeding Similar symptoms before: Has not had sx before - Additional information Additional information: The patient is a 27-year-old female who presents with vomiting and diarrhea that started about 3 hours prior to arrival. The diarrhea is watery, and she has vomited twice. She reports generalized abdominal cramping discomfort. She denies fever, dysuria, or vaginal bleeding. Her last menstrual period was about 4 weeks ago. She last ate last night. She has had no abdominal surgery. She denies history of similar symptoms in the past. Review of Systems Constitutional: denies: Fever, Fatigue Ears: denies: Tinnitus/ringing Nose: denies: Congestion Throat: denies: Sore throat Cardiac: denies: Chest pain / pressure Respiratory: denies: Dyspnea, Cough GI: reports: Abdominal Pain, Nausea, Vomiting, Diarrhea : denies: Dysuria, Vaginal bleeding Skin: denies: Rash Musculoskeletal: denies: Back pain Neurologic: denies: Focal weakness, Numbness, Headache PD PAST MEDICAL HISTORY - Past Medical History Cardiovascular: None Respiratory: None Endocrine/Autoimmune: None - Past Surgical History Past Surgical History: No - Present Medications Home Medications: Ambulatory Orders Medication Instructions Recorded Confirmed Pnv No.122/Iron/Folic Acid 1 each PO DAILY 06/22/17 06/22/17 [ Multi Tablet] Ibuprofen [Motrin] 600 mg PO Q6H PRN #30 tablet 06/24/17 Promethazine [Phenergan] 25 - 50 mg PO Q6H PRN #10 tab 11/03/17 - Allergies Allergies/Adverse Reactions: Allergies Allergy/AdvReac Type Severity Reaction Status Date / Time No Known Drug Allergies Allergy Verified 01/31/15 14:59 - Social History Does the pt smoke?: No Smoking Status: Never smoker Does the pt drink ETOH?: No Does the pt have substance abuse?: No - Immunizations Immunizations are current?: Yes - POLST Patient has POLST: No PD ED PE NORMAL - Vitals Vital signs reviewed: Yes (mildly tachycardic initially) - General General: Alert and oriented X 3, Well developed/nourished - HEENT HEENT: Atraumatic, Moist mucous membranes, Pharynx benign - Neck Neck: Supple, no meningeal sign, No adenopathy, No JVD - Cardiac Cardiac: No murmur, Other (Slightly tachycardic) - Respiratory Respiratory: No respiratory distress, Clear bilaterally - Abdomen Abdomen: Soft, No organomegaly, Other (Mild tenderness to palpation in RUQ, without rebound or guarding.) - Back Back: No CVA TTP - Derm Derm: No rash - Extremities Extremities: No edema, No calf tenderness / cord - Neuro Neuro: Alert and oriented X 3, No motor deficit, No sensory deficit Results - Vitals Vitals: Vital Signs - 24 hr 11/03/17 11:09 Temperature 36.4 C L Heart Rate 103 H Respiratory 18 Rate Blood Pressure 100/67 O2 Saturation 100 Oxygen O2 Source Room air - Labs Labs: Laboratory Tests 11/03/17 11/03/17 11/03/17 08:40 08:40 09:55 WBC 14.6 H RBC 5.24 Hgb 15.3 Hct 46.6 MCV 89.0 MCH 29.2 MCHC 32.8 RDW 13.5 Plt Count 284 MPV 8.6 Neut # 12.6 H Lymph # 0.9 L [place] # 0.8 Eos # 0.2 Baso # 0.0 Absolute Nucleated RBC 0.00 Nucleated RBC % 0.0 Sodium Potassium Chloride Carbon Dioxide Anion Gap BUN Creatinine Estimated GFR (MDRD) Glucose Calcium Total Bilirubin AST ALT Alkaline Phosphatase Total Protein Albumin Globulin Albumin/Globulin Ratio Lipase Urine Color YELLOW Urine Clarity CLEAR Urine pH 6.0 Ur Specific [place] >=1.030 H >=1.030 H Urine Protein NEGATIVE Urine Glucose (UA) NEGATIVE Urine Ketones NEGATIVE Urine Occult Blood NEGATIVE Urine Nitrite NEGATIVE Urine Bilirubin NEGATIVE Urine Urobilinogen 0.2 (NORMAL) Ur Leukocyte Esterase NEGATIVE Ur Microscopic Review NOT INDICATED Urine Culture Comments NOT INDICATED Urine HCG, Qual NEGATIVE 11/03/17 09:55 WBC RBC Hgb Hct MCV MCH MCHC RDW Plt Count MPV Neut # Lymph # [place] # Eos # Baso # Absolute Nucleated RBC Nucleated RBC % Sodium 140 Potassium 3.9 Chloride 106 Carbon Dioxide 24 Anion Gap 10.0 BUN 16 Creatinine 0.6 Estimated GFR (MDRD) 120 Glucose 105 H Calcium 9.5 Total Bilirubin 0.6 AST 20 ALT 16 Alkaline Phosphatase 104 Total Protein 8.5 H Albumin 5.0 Globulin 3.5 Albumin/Globulin Ratio 1.4 Lipase 80 H Urine Color Urine Clarity Urine pH Ur Specific [place] Urine Protein Urine Glucose (UA) Urine Ketones Urine Occult Blood Urine Nitrite Urine Bilirubin Urine Urobilinogen Ur Leukocyte Esterase Ur Microscopic Review Urine Culture Comments Urine HCG, Qual PD MEDICAL DECISION MAKING - ED course Complexity details: reviewed results, re-evaluated patient, considered differential, d/w patient, d/w family ED course: The patient's presentation is most consistent viral gastroenteritis, with vomiting, diarrhea, and mild dehydration. Food poisoning is a consideration, but is less likely. CBC, chemistry panel, and urinalysis are unremarkable. Treatment in the emergency department included administration of normal saline 1 L IV, and Zofran 4 mg IV. Patient's symptoms completely resolved with the above treatment, and she demonstrated the ability to drink fluids without recurrent nausea or vomiting. She is being discharged with a prescription for Phenergan. I discussed with her and her the expected course of illness, symptomatically treatment and outpatient follow-up, as well as potentially worrisome signs or symptoms that should prompt reevaluation in the emergency department. Departure - Departure Disposition: 01 Home, Self Care Clinical Impression: Gastroenteritis, Dehydration Condition: Stable Instructions: ED Gastroenteritis Viral Follow-Up: MARVA FENTON [Primary Care Provider] - Prescriptions: Promethazine [Phenergan] 25 - 50 mg PO Q6H PRN #10 tab PRN Reason: Nausea / Vomiting Comments: Drink plenty of fluids. You can use Phenergan as prescribed if needed for nausea. Follow up with your primary physician within 1-2 weeks. Call to schedule appointment. Return to the emergency department if you develop increasing abdominal pain, persistent vomiting, recurrent dehydration, or otherwise worsening symptoms. Discharge Date/Time: 11/03/17 11:30
[2017-11-03 10:19] LABS: BASOPHILS % (AUTO) 0.3 %; EOSINOPHILS # (AUTO) 0.2 10^3/uL (0.0-0.7); HGB - HEMOGLOBIN 15.3 g/dL (12.0-16.0); LYMPHOCYTES # (AUTO) 0.9 10^3/uL (1.5-3.5); LYMPHOCYTES % (AUTO) 6.3 %; MEAN CORPUSCULAR HEMOGLOBIN 29.2 pg (27.0-31.0); MEAN CORPUSCULAR HGB CONC 32.8 g/dL (32.0-36.0); MEAN PLATELET VOLUME 8.6 fL (7.9-10.8); MONOCYTES # (AUTO) 0.8 10^3/uL (0.0-1.0); MONOCYTES % (AUTO) 5.8 %; NEUTROPHILS # (AUTO) 12.6 10^3/uL (1.5-6.6); NEUTROPHILS % (AUTO) 86.6 %; PLT - PLATELET COUNT 284 10^3/uL (130-450); RED BLOOD COUNT 5.24 10^6/uL (4.20-5.40); RED CELL DISTRIBUTION WIDTH 13.5 % (12.0-15.0); WHITE BLOOD COUNT 14.6 x10^3/uL (4.8-10.8)
[2017-11-03 10:32] LABS: ALBUMIN/GLOBULIN RATIO 1.4 (1.0-2.2); BILIRUBIN,TOTAL 0.6 mg/dL (0.2-1.0); CALCIUM 9.5 mg/dL (8.5-10.3); CREATININE 0.6 mg/dL (0.4-1.0); TOTAL PROTEIN 8.5 g/dL (6.7-8.2)
[2017-11-03 11:10] VITALS: BP 100/67
== END 2017-11-03 11:30 | disposition home or self-care (01) ==
LOC: ED 08:13
DX: K52.9 Noninfective gastroenteritis and colitis, unspecified (principal); E86.0 Dehydration
CPT/HCPCS: 36415; 80053; 81001; 81003; 81025; 83690; 85025; 87086; 96361; 96374; 99283; 99284